=== PATIENT | male | born 1985 ===

== ENCOUNTER 2018-05-25 10:02 | Day surgery (SDC) | payer BC ==
[2018-05-25 10:35] VITALS: BMI 31.3
[2018-05-25] MEDS ORDERED: Propofol 10 mg/ml Inj (20 ML) ONE (13:27)
[2018-05-25 14:17] VITALS: TEMP 97.6
[2018-05-25 15:08] VITALS: BP 130/85; PULSE 60; RESP 15; O2SAT 99
== END 2018-05-25 15:07 | disposition home or self-care (01) ==
LOC: C.ENDO 10:02
PROVIDERS: ATTEND Internal Medicine Gastroenterology
DX: K26.4 Chronic or unspecified duodenal ulcer with hemorrhage (principal); K29.50 Unspecified chronic gastritis without bleeding
CPT/HCPCS: 43255; 88305; 88342; J0171; J2001; J2704